=== PATIENT | female | born 1985 | race Caucasian/White ===

== ENCOUNTER 2022-03-29 22:52 | Inpatient (IN) ==
[2022-03-29] MEDS ORDERED: 0.9 % Sodium Chloride 1,000 ML IVC ONE (23:51)
[2022-03-29] MEDS ORDERED: 0.9 % Sodium Chloride 250 ML ONE (23:58)
[2022-03-30] MEDS ORDERED: 0.9 % Sodium Chloride 500 ML ONE (00:22)
[2022-03-30 00:28] LABS: INR 1.7
[2022-03-30 01:35] LABS: Eosinophils % 0.3 %; Hematocrit 20.4 % (35.3-44.9); Hemoglobin 6.7 g/dL (11.5-15.4); Immature Granulocytes % 0.4 % (0-4); Mean Corpuscular HGB Conc 32.8 g/dL (31.6-35.5); Mean Corpuscular Hemoglobin 36.4 pg (28.0-33.3); Mean Corpuscular Volume 110.9 fL (83.0-100.0); Mean Platelet Volume 14.6 fL (9.4-12.4); Red Blood Count 1.84 M/mcL (3.82-4.97); Red Cell Distribution Width 14.5 % (11.5-14.5)
[2022-03-30 01:36] LABS: Basophils % 0.2 %
[2022-03-30 01:37] LABS: Eosinophils # 0.1 K/mcL (0.0-0.6); Immature Platelets 24.6 % (1.1-6.1); Lymphocytes # 3.7 K/mcL (0.6-4.6); Lymphocytes % 15.4 %; Monocytes # 1.9 K/mcL (0.0-1.3); Neutrophils # 18.3 K/mcL (1.6-8.9); Platelet Count 168 K/mcL (140-400); Segmented Neutrophils % 75.7 %; White Blood Count 24.2 K/mcL (4.3-11.1)
[2022-03-30 01:39] LABS: Basophils # 0.1 K/mcL (0.0-0.2)
[2022-03-30 01:42] LABS: Alanine Aminotransferase 30 Units/L (7-52); Albumin 2.9 g/dL (3.5-5.7); Albumin/Globulin Ratio 1.1 (1.1-2.2); Alkaline Phosphatase 112 Units/L (34-104); Aspartate Amino Transferase 81 Units/L (13-39); BUN/Creatinine Ratio 37 (6-26); Bilirubin,Total 3.3 mg/dL (0.3-1.0); Blood Urea Nitrogen 35 mg/dL (6-20); Calcium 8.4 mg/dL (8.6-10.3); Carbon Dioxide 21 mEq/L (23-29); Chloride 102 mEq/L (98-107); Globulin 2.6 g/dL (2.4-3.5); Glucose 210 mg/dL (70-105); Osmolality,Calculated 298 (280-300); Potassium 3.6 mEq/L (3.5-5.1); Sodium 137 mEq/L (136-145); Total Protein 5.5 g/dL (6.4-8.9); eGFR For African Americans > 60 (> 60); eGFR For Non-African Americans > 60 (> 60)
[2022-03-30] MEDS ORDERED: Piperacillin/Tazobactam 3.375 GM in 0.9 % Sodium Chloride Mini Bag 100 ML IVPB ONE (01:57)
[2022-03-30 02:22] LABS: Hematocrit 24.3 % (35.3-44.9); Hemoglobin 8.2 g/dL (11.5-15.4)
[2022-03-30] MEDS ORDERED: Octreotide 50 MCG/ML INJ IVP ONE (02:33)
[2022-03-30] MEDS ORDERED: Pantoprazole 40 MG VIAL IVP ONE (02:33)
[2022-03-30] MEDS ORDERED: Iopamidol - 370 500 ML MLS IVP ONE (03:49)
[2022-03-30] MEDS ORDERED: Naloxone 0.4 MG/ML INJ IVP PRN (03:50)
[2022-03-30] MEDS ORDERED: Melatonin 3 MG TABLET PO PRN (03:50)
[2022-03-30] MEDS ORDERED: Acetaminophen 325 MG TABLET PO PRN (03:50)
[2022-03-30] MEDS ORDERED: Ondansetron 4 MG/2 ML VIAL IVP PRN (03:50)
[2022-03-30] MEDS: Octreotide 400 MCG in 0.9 % Sodium Chloride 100 ML IVC SCH ×2 (03:51→21:42)
[2022-03-30] MEDS ORDERED: PrednisoLONE Oral Soln 15 MG/5 ML UDC PO ONE (04:53)
[2022-03-30] MEDS ORDERED: *HR* LORazepam 2 MG/ML VIAL IVP PRN ×3 (04:55)
[2022-03-30] MEDS ORDERED: *HR* Promethazine 25 MG/ML VIAL IM PRN (04:55)
[2022-03-30 05:29] LABS: Lipase 61 Units/L (11-82)
[2022-03-30] MEDS: 0.9 % Sodium Chloride 1,000 ML IVC SCH ×4 (05:47→21:10)
[2022-03-30] MEDS: Pantoprazole 40 MG in 0.9 % Sodium Chloride Mini Bag 100 ML IVC SCH ×5 (05:52→18:47)
[2022-03-30] MEDS: cefTRIAXone 1,000 MG in 0.9 % Sodium Chloride 10 ML IVP SCH (05:54)
[2022-03-30 07:09] LABS: INR 1.7; Prothrombin Time 18.5 Seconds (9.4-12.1)
[2022-03-30 07:26] LABS: BUN/Creatinine Ratio 42 (6-26); Blood Urea Nitrogen 33 mg/dL (6-20); Calcium 7.7 mg/dL (8.6-10.3); Carbon Dioxide 25 mEq/L (23-29); Chloride 105 mEq/L (98-107); Glucose 115 mg/dL (70-105); Osmolality,Calculated 292 (280-300); Potassium 4.3 mEq/L (3.5-5.1); Sodium 137 mEq/L (136-145); eGFR For African Americans > 60 (> 60); eGFR For Non-African Americans > 60 (> 60)
[2022-03-30 08:49] LABS: Alanine Aminotransferase 30 Units/L (7-52); Albumin 2.8 g/dL (3.5-5.7); Albumin/Globulin Ratio 1.3 (1.1-2.2); Alkaline Phosphatase 93 Units/L (34-104); Aspartate Amino Transferase 86 Units/L (13-39); Bilirubin,Direct 1.6 mg/dL (0.0-0.2); Bilirubin,Indirect 1.5 mg/dL (0.0-1.0); Bilirubin,Total 3.1 mg/dL (0.3-1.0); Globulin 2.2 g/dL (2.4-3.5); Magnesium 1.6 mg/dL (1.6-2.6)
[2022-03-30 08:51] LABS: Basophils % 0.2 %; Eosinophils % 0.4 %
[2022-03-30 09:00] LABS: Eosinophils # 0.1 K/mcL (0.0-0.6); Hematocrit 22.5 % (35.3-44.9); Immature Granulocytes % 0.4 % (0-4); Immature Platelets 19.3 % (1.1-6.1); Lymphocytes # 2.5 K/mcL (0.6-4.6); Lymphocytes % 16.2 %; Mean Corpuscular HGB Conc 35.6 g/dL (31.6-35.5); Mean Corpuscular Hemoglobin 32.9 pg (28.0-33.3); Mean Corpuscular Volume 92.6 fL (83.0-100.0); Mean Platelet Volume 14.7 fL (9.4-12.4); Monocytes # 1.3 K/mcL (0.0-1.3); Monocytes % 8.5 %; Neutrophils # 11.6 K/mcL (1.6-8.9); Red Blood Count 2.43 M/mcL (3.82-4.97); Segmented Neutrophils % 74.3 %; White Blood Count 15.6 K/mcL (4.3-11.1)
[2022-03-30 09:56] LABS: Platelet Count 81 K/mcL (140-400)
[2022-03-30 11:48] LABS: Hepatitis B Surface Antigen Nonreactive (Nonreactive)
[2022-03-30 12:16] LABS: Hepatitis B Core IgM Nonreactive (Nonreactive)
[2022-03-30] MEDS ORDERED: *HR* Propofol 200 MG/20 ML VIAL IVP ONE (12:23)
[2022-03-30] MEDS ORDERED: Lidocaine -MPF 2% 2 ML VIAL ONE (12:24)
[2022-03-30 12:27] LABS: Hepatitis A Antibody IgM Nonreactive (Nonreactive)
[2022-03-30] MEDS ORDERED: Lidocaine -MPF 4% 5 ML AMPUL ONE (12:52)
[2022-03-30] MEDS ORDERED: Lidocaine HCL 4 ML Topical Solution (Laryng-O-Jet Kit Sterile Pak) TP ONE (12:53)
[2022-03-30 13:42] LABS: Hepatitis C Virus Antibody Reactive (Nonreactive)
[2022-03-31] MEDS: Pantoprazole 40 MG in 0.9 % Sodium Chloride Mini Bag 100 ML IVC SCH ×4 (00:03→16:33)
[2022-03-31] MEDS: 0.9 % Sodium Chloride 1,000 ML IVC SCH ×2 (03:24→09:59)
[2022-03-31 07:35] LABS: Albumin 2.4 g/dL (3.5-5.7); Albumin/Globulin Ratio 1.3 (1.1-2.2); Bilirubin,Direct 1.4 mg/dL (0.0-0.2); Bilirubin,Indirect 0.9 mg/dL (0.0-1.0); Bilirubin,Total 2.3 mg/dL (0.3-1.0); Globulin 1.9 g/dL (2.4-3.5); Total Protein 4.3 g/dL (6.4-8.9)
[2022-03-31 07:41] LABS: BUN/Creatinine Ratio 29 (6-26); Blood Urea Nitrogen 21 mg/dL (6-20); Calcium 6.6 mg/dL (8.6-10.3); Carbon Dioxide 23 mEq/L (23-29); Chloride 114 mEq/L (98-107); Glucose 108 mg/dL (70-105); Magnesium 1.7 mg/dL (1.6-2.6); Osmolality,Calculated 296 (280-300); Phosphorous 1.7 mg/dL (2.7-4.5); Potassium 3.5 mEq/L (3.5-5.1); Sodium 141 mEq/L (136-145); eGFR For African Americans > 60 (> 60); eGFR For Non-African Americans > 60 (> 60)
[2022-03-31] MEDS: cefTRIAXone 1,000 MG in 0.9 % Sodium Chloride 10 ML IVP SCH (08:34)
[2022-03-31 08:41] LABS: Hemoglobin 6.7 g/dL (11.5-15.4); Mean Platelet Volume 13.6 fL (9.4-12.4); Monocytes % 8.8 %; Red Cell Distribution Width 20.7 % (11.5-14.5)
[2022-03-31 08:43] LABS: Basophils % 0.5 %; Eosinophils # 0.2 K/mcL (0.0-0.6); Eosinophils % 2.9 %; Hematocrit 20.7 % (35.3-44.9); Immature Granulocytes % 0.1 % (0-4); Immature Platelets 12.3 % (1.1-6.1); Lymphocytes # 2.1 K/mcL (0.6-4.6); Lymphocytes % 27.8 %; Mean Corpuscular HGB Conc 32.4 g/dL (31.6-35.5); Mean Corpuscular Hemoglobin 32.5 pg (28.0-33.3); Mean Corpuscular Volume 100.5 fL (83.0-100.0); Monocytes # 0.7 K/mcL (0.0-1.3); Neutrophils # 4.6 K/mcL (1.6-8.9); Red Blood Count 2.06 M/mcL (3.82-4.97); Segmented Neutrophils % 59.9 %; White Blood Count 7.6 K/mcL (4.3-11.1)
[2022-03-31 08:50] LABS: Platelet Count 65 K/mcL (140-400)
[2022-03-31 09:46] LABS: Anisocytosis 2+ (Not Present); Platelet Estimate Decreased (Normal)
[2022-03-31 11:05] LABS: Hematocrit 18.2 % (35.3-44.9); Hemoglobin 6.2 g/dL (11.5-15.4)
[2022-03-31] MEDS: Octreotide 400 MCG in 0.9 % Sodium Chloride 100 ML IVC SCH (12:43)
[2022-03-31] MEDS ORDERED: 0.9 % Sodium Chloride 250 ML ONE (15:33)
[2022-03-31 18:29] LABS: Hematocrit 25.1 % (35.3-44.9)
[2022-03-31 18:37] LABS: Hemoglobin 8.5 g/dL (11.5-15.4)
[2022-04-01] MEDS: Pantoprazole 40 MG in 0.9 % Sodium Chloride Mini Bag 100 ML IVC SCH ×2 (00:55→05:45)
[2022-04-01] MEDS: Octreotide 400 MCG in 0.9 % Sodium Chloride 100 ML IVC SCH (05:45)
[2022-04-01 06:24] LABS: Magnesium 1.6 mg/dL (1.6-2.6)
[2022-04-01 07:09] LABS: Mean Corpuscular Volume 96.5 fL (83.0-100.0)
[2022-04-01 07:11] LABS: Basophils % 0.7 %; Eosinophils # 0.2 K/mcL (0.0-0.6); Eosinophils % 3.7 %; Hematocrit 24.8 % (35.3-44.9); Hemoglobin 8.2 g/dL (11.5-15.4); Immature Platelets 13.1 % (1.1-6.1); Lymphocytes # 1.6 K/mcL (0.6-4.6); Lymphocytes % 27.3 %; Mean Corpuscular HGB Conc 33.1 g/dL (31.6-35.5); Mean Corpuscular Hemoglobin 31.9 pg (28.0-33.3); Mean Platelet Volume 13.1 fL (9.4-12.4); Monocytes # 0.4 K/mcL (0.0-1.3); Monocytes % 7.2 %; Neutrophils # 3.7 K/mcL (1.6-8.9); Red Blood Count 2.57 M/mcL (3.82-4.97); Red Cell Distribution Width 19.3 % (11.5-14.5); Segmented Neutrophils % 61.1 %
[2022-04-01 07:20] LABS: Folate 3.7 ng/mL (3.0-16.0)
[2022-04-01 07:28] LABS: Platelet Count 65 K/mcL (140-400)
[2022-04-01] MEDS: cefTRIAXone 1,000 MG in 0.9 % Sodium Chloride 10 ML IVP SCH (09:16)
[2022-04-01] MEDS ORDERED: SODIUM CHLORIDE/NAHCO3/KCL/PEG 4,000 ML SOLN.RECON PO ONE (17:00)
[2022-04-01] MEDS: Pantoprazole 40 MG VIAL IVP SCH (19:38)
[2022-04-02] MEDS: Pantoprazole 40 MG VIAL IVP SCH (06:07)
[2022-04-02] MEDS: cefTRIAXone 1,000 MG in 0.9 % Sodium Chloride 10 ML IVP SCH (07:51)
[2022-04-02 08:56] LABS: Hemoglobin 8.7 g/dL (11.5-15.4); Immature Granulocytes % 0.3 % (0-4); Lymphocytes % 20.2 %; Red Cell Distribution Width 19.2 % (11.5-14.5); Segmented Neutrophils % 68.6 %
[2022-04-02 08:58] LABS: Basophils % 0.5 %; Eosinophils # 0.2 K/mcL (0.0-0.6); Eosinophils % 2.5 %; Hematocrit 25.6 % (35.3-44.9); Immature Platelets 13.1 % (1.1-6.1); Lymphocytes # 1.5 K/mcL (0.6-4.6); Mean Corpuscular Hemoglobin 32.6 pg (28.0-33.3); Mean Corpuscular Volume 95.9 fL (83.0-100.0); Mean Platelet Volume 12.8 fL (9.4-12.4); Monocytes # 0.6 K/mcL (0.0-1.3); Monocytes % 7.9 %; Red Blood Count 2.67 M/mcL (3.82-4.97); White Blood Count 7.3 K/mcL (4.3-11.1)
[2022-04-02 09:09] LABS: Platelet Count 71 K/mcL (140-400)
[2022-04-02 09:53] LABS: Alanine Aminotransferase 38 Units/L (7-52); Albumin 2.8 g/dL (3.5-5.7); Albumin/Globulin Ratio 1.2 (1.1-2.2); Alkaline Phosphatase 85 Units/L (34-104); Aspartate Amino Transferase 102 Units/L (13-39); BUN/Creatinine Ratio 13 (6-26); Bilirubin,Total 3.7 mg/dL (0.3-1.0); Blood Urea Nitrogen 8 mg/dL (6-20); Calcium 7.2 mg/dL (8.6-10.3); Carbon Dioxide 22 mEq/L (23-29); Chloride 108 mEq/L (98-107); Globulin 2.3 g/dL (2.4-3.5); Glucose 90 mg/dL (70-105); Magnesium 1.7 mg/dL (1.6-2.6); Osmolality,Calculated 282 (280-300); Phosphorous 2.3 mg/dL (2.7-4.5); Potassium 3.2 mEq/L (3.5-5.1); Sodium 137 mEq/L (136-145); Total Protein 5.1 g/dL (6.4-8.9); eGFR For African Americans > 60 (> 60); eGFR For Non-African Americans > 60 (> 60)
[2022-04-02] MEDS ORDERED: *HR* Propofol 200 MG/20 ML VIAL IVP ONE ×2 (11:24→11:49)
[2022-04-02 15:03] VITALS: BP 101/67; PULSE 70; TEMP 99.1; O2SAT 99
[2022-04-02 15:45] LABS: HCV Quant Interpretation DETECTED (Not Detected); HCV Quant Log 3.14 log IU/mL
== END 2022-04-02 15:39 | disposition home or self-care (01) | DRG 663 ==
LOC: 3BNU 22:52 → EMEROOARM 22:52 → SUATTDRO 03-30 04:08 → 3BNU 03-30 04:48
PROVIDERS: ADMIT Family Medicine; ATTEND Internal Medicine
PROC: ENDOEBX (2022-03-30 14:45)